=== PATIENT | female | born 1950 | race Caucasian/White ===

== ENCOUNTER → 2018-03-23 | Outpatient (CLI) | payer OTHER ==
[~2018-03-23] MED LIST: FENTANYL CITRATE/PF 100MCG/2 ML INJ ONE; MIDAZOLAM HCL 2 MG/2 ML VIAL ONE
[2018-03-23 08:43] LABS: INR 1.02; PROTHROMBIN TIME 12.6 seconds (11.9-14.5)
[2018-03-23 08:44] LABS: PARTIAL THROMBOPLASTIN TIME 31.6 seconds (23.8-35.5)
--- NOTE | 2018-03-23 11:15 | Diagnostic Imaging Report ---
PROCEDURE:CHEST SINGLE (NOT PORTABLE) TECHNIQUE:Upright PA chest INDICATION:Post lung biopsy COMPARISON:Patients [facility], DX, CHEST 2 VIEWS, 10/07/2008, 17:09. FINDINGS: See conclusion.. CONCLUSION: 1. Small volume right lower lobe airspace opacity consistent with post biopsy hemorrhage. No pneumothorax. 2. Normal heart size and central vasculature. 3. Intact skeleton. Dictated by: Nilo Rose M.D. on 03/23/2018 at 11:18 Electronically approved by: Nilo Rose M.D. on 03/23/2018 at 11:18
--- NOTE | 2018-03-23 11:46 | Diagnostic Imaging Report ---
CT-guided Lung Biopsy 03/23/2018 Pre-Procedure Diagnosis: Right lower lobe pulmonary nodule Post-procedure Diagnosis:Right lower lobe pulmonary nodule Midwife Practitioner: Avis Rose Cash Specialist: None Sedation: Moderate sedation was provided with intravenous fentanyl and Versed. Heart rate, rhythm and oxygen saturation were monitored and real-time by a dedicated interventional radiology nurse under my direct supervision. Blood pressure was monitored in 5 minute increments. 1% lidocaine was used for local anesthesia. Total sedation time: 30 minutes. Radiation Dose:1906.33 mGy-cm (DLP) Estimate blood loss: None. Blood administered: None Complications: None Implants/Grafts: None Specimen: 22-gauge FNA x2 (cytology); 22-gauge FNA (culture); 18-gauge x 2 cm core biopsy x4 Procedure: Informed consent was obtained and the patient placed prone. A timeout was performed, followed by it trainee CT within the region of interest. The right back was prepped and draped in standard sterile fashion. Using intermittent CT guidance, 17-gauge guide needle was advanced to the margin of the right lower lobe pulmonary nodule. Upon confirmation of positioning, 3 fine-needle aspirations were performed, followed by 4 18-gauge 2 cm core biopsies. Intermittent CT was used to confirm needle positioning, with images stored in the electronic medical record. Upon confirmation of specimen with pathology the needle was removed, with autologous blood clot embolization of the tract. Findings: 1.2 cm right lower lobe pulmonary nodule. Impression: Successful right lower lobe pulmonary nodule biopsy using CT guidance under moderate sedation. This report was generated with voice-recognition technology. Errors in fiberglass bonding machine tender can occur. Please interpret accordingly and contact a radiologist if there are any questions regarding the report. Signed by: Dr. Nilo Rose M.D. on 03/23/2018 11:42 AM
--- NOTE | 2018-03-23 11:46 | Diagnostic Imaging Report ---
CT-guided Lung Biopsy 03/23/2018 Pre-Procedure Diagnosis: Right lower lobe pulmonary nodule Post-procedure Diagnosis:Right lower lobe pulmonary nodule Drill Instructor: Avis Rose Painter Interior Finish: None Sedation: Moderate sedation was provided with intravenous fentanyl and Versed. Heart rate, rhythm and oxygen saturation were monitored and real-time by a dedicated interventional radiology nurse under my direct supervision. Blood pressure was monitored in 5 minute increments. 1% lidocaine was used for local anesthesia. Total sedation time: 30 minutes. Radiation Dose:1906.33 mGy-cm (DLP) Estimate blood loss: None. Blood administered: None Complications: None Implants/Grafts: None Specimen: 22-gauge FNA x2 (cytology); 22-gauge FNA (culture); 18-gauge x 2 cm core biopsy x4 Procedure: Informed consent was obtained and the patient placed prone. A timeout was performed, followed by hand outside cutter CT within the region of interest. The right back was prepped and draped in standard sterile fashion. Using intermittent CT guidance, 17-gauge guide needle was advanced to the margin of the right lower lobe pulmonary nodule. Upon confirmation of positioning, 3 fine-needle aspirations were performed, followed by 4 18-gauge 2 cm core biopsies. Intermittent CT was used to confirm needle positioning, with images stored in the electronic medical record. Upon confirmation of specimen with pathology the needle was removed, with autologous blood clot embolization of the tract. Findings: 1.2 cm right lower lobe pulmonary nodule. Impression: Successful right lower lobe pulmonary nodule biopsy using CT guidance under moderate sedation. This report was generated with voice-recognition technology. Errors in open winder can occur. Please interpret accordingly and contact a radiologist if there are any questions regarding the report. Signed by: Dr. Nilo Rose M.D. on 03/23/2018 11:42 AM
--- NOTE | 2018-03-23 12:49 | Diagnostic Imaging Report ---
PROCEDURE:CHEST SINGLE (NOT PORTABLE) TECHNIQUE:Upright PA chest INDICATION:Postbiopsy to our evaluation. COMPARISON:Patients [facility], DX, CHEST SINGLE (NOT PORTABLE), 03/23/2018, 10:59. FINDINGS: Stable right lower lobe airspace opacity. Lungs otherwise clear symmetrically hyperinflated. No pleural effusions. No pneumothorax. Normal cardiomediastinal silhouette. Intact skeleton. Breast augmentation. CONCLUSION: Stable right lower lobe postoperative hemorrhage without evidence of pneumothorax. Dictated by: Nilo Rose M.D. on 03/23/2018 at 12:52 Electronically approved by: Nilo Rose M.D. on 03/23/2018 at 12:52
== END ==
LOC: CT 07:45
PROVIDERS: ATTEND Internal Medicine Critical Care Medicine
DX: R91.1 Solitary pulmonary nodule (principal)
CPT/HCPCS: 32405; 36415; 71045; 77012; 85049; 85610; 85730; 87070; 87071; 87075; 87205; 88172; 88173; 88305; J2250; 88112; 88342